=== PATIENT | female | born 1995 | race Caucasian/White ===

== ENCOUNTER 2024-04-23 06:12 | Observation (INO) | payer OTHER ==
[~2024-04-23] VITALS: Ht 162.6 cm; Wt 76.0 kg
[2024-04-23 07:21] LABS: BASO # 0.1 10^3/uL (0.0-0.2); BASO % 0.6 % (0.0-1.0); EOS # 0.2 10^3/uL (0.0-0.5); EOS % 2.1 % (0.0-3.0); HEMATOCRIT 39.4 % (36.0-47.0); LYMPH % 25.4 % (24.0-44.0); MEAN CORPUSCULAR HEMOGLOBIN 28.6 pg (27.0-33.0); MEAN CORPUSCULAR VOLUME 86.8 fl (80.0-96.0); MONO # 0.6 10^3/uL (0.0-0.8); NEUTROPHILS # 5.1 10^3/uL (1.5-8.5); NEUTROPHILS % 64.4 % (36.0-66.0); PLATELET COUNT, AUTOMATED 250 10^3/uL (150-450); RED BLOOD COUNT 4.54 10^6/uL (4.00-5.40)
[2024-04-23] MEDS: LIDOCAINE W/EPINEPHRINE 1% 20ML VIAL SC ONE (07:35)
[2024-04-23 07:42] LABS: ALBUMIN 3.9 G/DL (3.2-5.2); ALKALINE PHOSPHATASE 102 U/L (46-116); ALT/SGPT 24 U/L (7.0-40); AST/SGOT 19 U/L (<34); BILIRUBIN,TOTAL 0.5 MG/DL (0.3-1.2); BLOOD UREA NITROGEN 11 MG/DL (9-23); CARBON DIOXIDE LEVEL 27 MMOL/L (20-31); CHLORIDE LEVEL 106 MMOL/L (98-107); CREATININE FOR GFR 0.84 MG/DL (0.55-1.30); GLOMERULAR FILTRATION RATE > 60.0 (>60); GLUCOSE, FASTING 110 MG/DL (60-100); POTASSIUM SERUM 3.8 MMOL/L (3.5-5.1); SODIUM LEVEL 138 MMOL/L (136-145); TOTAL PROTEIN 7.5 G/DL (5.7-8.2)
[2024-04-23 07:43] LABS: HCG, SERUM QUALITATIVE NEGATIVE (NEGATIVE)
[2024-04-23 07:44] LABS: THYROID STIMULATING HORMONE 4.889 uIU/ML (0.55-4.78)
[2024-04-23] MEDS: NS 1,000 ML IV ONE (08:32)
[2024-04-23] MEDS: BOOSTRIX VACCINE (TETANUS/DIPHTH/ACEL. PERTUSSIS) 0.5ML SYR IM.IMMUN ONE (08:40)
[2024-04-23] MEDS: ENOXAPARIN 40MG/0.4ML SYRINGE (J1650 PER 10MG) SC SCH (09:00)
[2024-04-23] MEDS ORDERED: HOME MED LIST COMPLETE! XX SCH (09:10)
[2024-04-23 09:34] LABS: AMPHETAMINES LEVEL URINE NEGATIVE (NEGATIVE); BARBITURATES URINE NEGATIVE (NEGATIVE); BENZODIAZEPINES URINE NEGATIVE (NEGATIVE); CANNABINOIDS URINE NEGATIVE (NEGATIVE); COCAINE METABOLITE URINE NEGATIVE (NEGATIVE); METHADONE URINE NEGATIVE (NEGATIVE); OPIATES URINE NEGATIVE (NEGATIVE); PHENCYCLIDINE URINE NEGATIVE (NEGATIVE)
[2024-04-23 11:57] LABS: MAGNESIUM LEVEL 1.7 MG/DL (1.8-2.4)
[2024-04-23 12:47] LABS: COLLAGEN EPINEPHRINE 83 SECONDS (74-162)
[2024-04-23 12:59] LABS: INR 1.07; PROTHROMBIN TIME 13.6 SECONDS (12.5-14.5)
[2024-04-23 13:00] LABS: PARTIAL THROMBOPLASTIN TIME 24.9 SECONDS (24.8-34.2)
[2024-04-23 13:15] VITALS: BP 111/66; TEMP 96.7; O2SAT 98
[2024-04-23] MEDS: MAGNESIUM OXIDE 400MG TAB (MAG-OX) PO ONE (15:42)
[2024-04-23] MEDS: ONDANSETRON 4MG 2ML VIAL IV PRN (15:42)
[2024-04-23 15:48] VITALS: BP 99/54; TEMP 97.8; O2SAT 100
[2024-04-23 19:00] VITALS: BP 104/56; TEMP 97.3; O2SAT 100
[2024-04-23] MEDS: EXCEDRIN MIGRAINE TABLET PO PRN (20:18)
[2024-04-24] VITALS: BP 99/58; TEMP 97.1; O2SAT 99
[2024-04-24 03:22] VITALS: BP 97/57; TEMP 96.9; O2SAT 99
[2024-04-24 04:00] VITALS: TEMP 97
[2024-04-24 05:33] LABS: HEMATOCRIT 37.7 % (36.0-47.0); HEMOGLOBIN 12.6 g/dl (12.0-15.5); MEAN CORPUSCULAR HEMOGLOBIN 29.4 pg (27.0-33.0); MEAN CORPUSCULAR HGB CONC 33.4 g/dl (32.0-36.5); MEAN CORPUSCULAR VOLUME 87.9 fl (80.0-96.0); PLATELET COUNT, AUTOMATED 268 10^3/uL (150-450); RED BLOOD COUNT 4.29 10^6/uL (4.00-5.40); WHITE BLOOD COUNT 9.3 10^3/uL (4.0-10.0)
[2024-04-24 06:04] LABS: BLOOD UREA NITROGEN 8 MG/DL (9-23); CALCIUM LEVEL 8.8 MG/DL (8.5-10.1); CARBON DIOXIDE LEVEL 25 MMOL/L (20-31); CHLORIDE LEVEL 109 MMOL/L (98-107); CREATININE FOR GFR 0.77 MG/DL (0.55-1.30); GLOMERULAR FILTRATION RATE > 60.0 (>60); GLUCOSE, FASTING 90 MG/DL (60-100); SODIUM LEVEL 141 MMOL/L (136-145)
[2024-04-24 07:33] VITALS: BP 104/62; TEMP 97.2; O2SAT 99
[2024-04-24 08:00] VITALS: TEMP 97
== END 2024-04-24 10:22 | disposition home or self-care (01) ==
LOC: EDBD 06:12 → M ED 06:12 → M ED INP 06:13 → M PCU 13:09
PROVIDERS: ADMIT Internal Medicine; ATTEND Internal Medicine
DX: R55 Syncope and collapse (principal); S01.419A Laceration without foreign body of unspecified cheek and temporomandibular area, initial encounter; W19.XXXA Unspecified fall, initial encounter; Y92.89 Other specified places as the place of occurrence of the external cause; Y93.9 Activity, unspecified; Y99.9 Unspecified external cause status; Z23 Encounter for immunization
CPT/HCPCS: 12011; 36415; 70450; 71045; 72125; 80048; 80053; 80307; 81001; 83735; 84443; 84703; 85025; 85027; 85576; 85610; 85730; 86618; 90471; 90715; 93005; 93041; 93306; 94760; 96375; 99285; J2405

== ENCOUNTER → 2024-04-24 | Outpatient (CLI) | payer OTHER | LOC: M EKG 10:36 | PROVIDERS: ATTEND Internal Medicine | DX: R55 Syncope and collapse (principal) ==